=== PATIENT | male | born 1970 | race Caucasian/White ===

== ENCOUNTER 2020-05-28 11:14 | Emergency (ER) | payer MEDICAID ==
[2020-05-28 11:32] VITALS: BP 165/82
[2020-05-28] MEDS ORDERED: BUFFERED LIDOCAINE 10 ML SYRINGE SUBQ STA (11:46)
[2020-05-28] MEDS ORDERED: PENICILLIN VK 250 MG TABLET PO STA (11:46)
--- NOTE | 2020-05-28 11:47 | ED Physician Documentation ---
History of Present Illness - Stated complaint Stated Complaint: TOOTH PX - Chief complaint Chief Complaint: Heent - History obtained from History obtained from: Patient (Longstanding broken tooth, left maxilla. Over the last couple of days developed mild pain but significant facial swelling. No fevers.) Review of Systems Ten Systems: 10 systems reviewed and negative Constitutional: denies: Fever, Chills Throat: reports: Dental pain / toothache. denies: Sore throat Cardiac: denies: Chest pain / pressure, Palpitations PD PAST MEDICAL HISTORY - Past Medical History Past Medical History: No Cardiovascular: None Respiratory: None Neuro: None Endocrine/Autoimmune: None GI: None : None HEENT: None Psych: None Musculoskeletal: None Derm: None - Past Surgical History Past Surgical History: Yes HEENT: Other - Present Medications Home Medications: Ambulatory Orders Medication Instructions Recorded Confirmed Penicillin V Potassium 500 mg PO Q6HR #40 tablet 05/28/20 - Allergies Allergies/Adverse Reactions: Allergies Allergy/AdvReac Type Severity Reaction Status Date / Time No Known Drug Allergies Allergy Verified 05/28/20 11:33 - Social History Does the pt smoke?: Yes Smoking Status: Current every day smoker Does the pt drink ETOH?: Yes ETOH Use: Beer Does the pt have substance abuse?: No - Immunizations Immunizations are current?: No - POLST Patient has POLST: No PD ED PE NORMAL - Vitals Vital signs reviewed: Yes - General General: Alert and oriented X 3, No acute distress - HEENT HEENT: Other (He has a palpable abscess from one of the left maxillary molars on the lateral gingival side. Overlying facial swelling. No trismus or sublingual edema.) - Neck Neck: Supple, no meningeal sign, No bony TTP - Neuro Neuro: Alert and oriented X 3, construction analyst 2-12 intact, Normal speech Results - Vitals Vitals: Vital Signs - 24 hr 05/28/20 11:30 Temperature 36.9 C Heart Rate 77 Respiratory 20 Rate Blood Pressure 165/82 H O2 Saturation 99 Oxygen O2 Source Room air Procedures - Abscess I&D (location) L maxillary dental Preparation: Lidocaine 1% Incision: Incised with scalpel, Purulent drainage Other: Pt tolerated well, Dressing applied, Antibiotic prescribed PD MEDICAL DECISION MAKING - ED course ED course: 50-year-old gentleman with a dental abscess that was incised and drained. Declined pain medication preferring to stick with ibuprofen. Departure - Departure Disposition: Home, Self Care Clinical Impression: Dental abscess Condition: Good Record reviewed to determine appropriate education?: Yes Instructions: ED Dental Abscess Facial Cellulitis Follow-Up: LUIS E AVILA [Physician No Access] - Prescriptions: Penicillin V Potassium 500 mg PO Q6HR #40 tablet Comments: Return if worsening, although otherwise follow-up with the oral surgeon as soon as possible. Call his office today. Discharge Date/Time: 05/28/20 12:26
== END 2020-05-28 12:26 | disposition home or self-care (01) ==
LOC: ED 11:14
DX: K04.7 Periapical abscess without sinus (principal); F17.200 Nicotine dependence, unspecified, uncomplicated
CPT/HCPCS: 41800; 99282; 99283; A9270

== ENCOUNTER 2020-06-18 11:36 | Emergency (ER) | payer MEDICAID ==
[2020-06-18] MEDS ORDERED: PENICILLIN VK 250 MG TABLET PO STA (12:48)
--- NOTE | 2020-06-18 12:49 | ED Physician Documentation ---
PD HPI HEENT - Stated complaint Stated Complaint: SWELLING AND PX IN MOUTH - Chief complaint Chief Complaint: Heent - History obtained from History obtained from: Patient - Additional information Additional information: He was seen here couple weeks ago for a dental infection. He had an I&D done and antibiotics were started. He got much better but after the completion of the antibiotics the swelling has recurred. He does have an appointment with the oral surgeon this week. No fevers. Review of Systems Constitutional: denies: Fever, Chills Nose: reports: Reviewed and negative Throat: reports: Reviewed and negative PD PAST MEDICAL HISTORY - Past Medical History Past Medical History: Yes Cardiovascular: None Respiratory: None Neuro: None Endocrine/Autoimmune: None GI: None : None HEENT: None Psych: None Musculoskeletal: None Derm: None - Past Surgical History Past Surgical History: Yes HEENT: Other - Present Medications Home Medications: Ambulatory Orders Medication Instructions Recorded Confirmed Penicillin V Potassium 500 mg PO Q6HR #40 tablet 05/28/20 Penicillin V Potassium 500 mg PO Q6HR #40 tablet 06/18/20 - Allergies Allergies/Adverse Reactions: Allergies Allergy/AdvReac Type Severity Reaction Status Date / Time No Known Drug Allergies Allergy Verified 06/18/20 11:45 - Social History Does the pt smoke?: Yes Smoking Status: Current every day smoker Does the pt drink ETOH?: Yes Does the pt have substance abuse?: No - Immunizations Immunizations are current?: No - POLST Patient has POLST: No PD ED PE NORMAL - Vitals Vital signs reviewed: Yes - General General: Alert and oriented X 3, No acute distress - HEENT HEENT: Other (Mild facial swelling overlying left maxillary molars. Generally poor dentition. No palpable abscess to I&D at this juncture. No trismus.) - Neck Neck: Supple, no meningeal sign, No bony TTP - Neuro Neuro: Alert and oriented X 3, Normal speech Results - Vitals Vitals: Vital Signs - 24 hr 06/18/20 11:41 Temperature 36.4 C L Heart Rate 89 Respiratory 14 Rate Blood Pressure 151/84 H O2 Saturation 100 Oxygen O2 Source Room air Departure - Departure Disposition: Home, Self Care Clinical Impression: Dental abscess Condition: Good Record reviewed to determine appropriate education?: Yes Instructions: ED Abscess Dental Prescriptions: Penicillin V Potassium 500 mg PO Q6HR #40 tablet Comments: Follow-up with the oral surgeon as scheduled. Returning if worse.
[2020-06-18 13:07] VITALS: BP 140/78
== END 2020-06-18 13:07 | disposition home or self-care (01) ==
LOC: ED 11:36
DX: K04.7 Periapical abscess without sinus (principal); F17.200 Nicotine dependence, unspecified, uncomplicated
CPT/HCPCS: 99282; 99283; A9270